=== PATIENT | female | born 1930 | race Caucasian/White ===

== ENCOUNTER 2021-02-11 18:45 | Inpatient (IN) | payer MEDICARE, OTHER ==
[2021-02-11] MEDS ORDERED: traMADol 50 MG Tab PO PRN (19:59)
--- NOTE | 2021-02-11 20:06 | EDM.PDOC ---
ED HPI GENERAL MEDICAL PROBLEM - General Chief Complaint: Lower Extremity Injury/Pain Stated Complaint: Left Hip Pain-fall Time Seen by Provider: 02/11/21 18:55 Source of Information: Reports: EMS - History of Present Illness INITIAL COMMENTS - FREE TEXT/NARRATIVE: Pt comes in by EMS with C/O falling at her sons home and now she cannot walk. She has left hip / pelvic pain with movement. At rest she has no pain. Initially she denies any other injuries. No H/A, neck pain, Abd pain, nausea. 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 Musculoskeletal: Reports: Other (left hip pain.) ED EXAM, GENERAL - Physical Exam Exam: See Below General Appearance: Other (she denies any pain at rest.) Extremities: Other (her area of pain is the posterior hip / pelvic area. She can raise her left leg with minimal pain.) Course - Vital Signs Last Recorded V/S: Last Vital Signs Temp 97.8 F 02/11/21 18:48 Pulse 75 02/11/21 18:48 Resp 18 02/11/21 18:48 BP 120/58 L 02/11/21 18:48 Pulse Ox 89 L 02/11/21 18:48 - Orders/Labs/Meds Orders: Active Orders 24 hr Category Date Time Status Patient Status [ADT] Routine ADT 02/11/21 19:53 Active Bedrest Bedside Commode [RC] ASDIRECTED Care 02/11/21 19:53 Active Oxygen Therapy [RC] PRN Care 02/11/21 19:53 Active VTE/DVT Education [RC] Per Unit Routine Care 02/11/21 19:53 Active Vital Signs [RC] Q4H Care 02/11/21 19:53 Active PT Evaluation and Treatment [CONS] Routine Cons 02/11/21 19:53 Active Regular Diet [DIET] Diet 02/12/21 Breakfast Ordered Chest wo Cont [CT] Stat Exams 02/11/21 19:22 Taken Hip Min 2V or 3V w Pelvis Lt [CR] Stat Exams 02/11/21 18:49 Taken BASIC METABOLIC PANEL,BMP [CHEM] AM Lab 02/12/21 05:11 Ordered CBC WITH AUTO DIFF [HEME] AM Lab 02/12/21 05:11 Ordered CORONAVIRUS COVID-19 RAPID [MOLEC] Urgent Lab 02/11/21 19:59 Ordered Acetaminophen [TylenoL] Med 02/11/21 19:53 Active 650 mg PO Q4H PRN traMADol [Ultram] Med 02/11/21 19:59 Ordered 50 mg PO Q6H PRN Resuscitation Status Routine Resus Stat 02/11/21 19:53 Ordered Medication Orders Acetaminophen (Acetaminophen 325 Mg Tab) 650 mg PO Q4H PRN PRN Reason: Pain (Mild 1-3)/fever Tramadol HCl (Tramadol 50 Mg Tab) 50 mg PO Q6H PRN PRN Reason: Pain (moderate 4-6) Meds: Medications Generic Name Dose Route Start Last Admin Trade Name Freq PRN Reason Stop Dose Admin Acetaminophen 650 mg 02/11/21 19:53 Acetaminophen 325 Mg Tab PO Q4H PRN Pain (Mild 1-3)/fever Tramadol HCl 50 mg 02/11/21 19:59 Tramadol 50 Mg Tab PO Q6H PRN Pain (moderate 4-6) - Re-Assessments/Exams Free Text/Narrative Re-Assessment/Exam: 02/11/21 20:02 Hip / pelvic x-rays show a pelvic fracture of the Ramus, inferior and superior. She now has some lower chest wall pain on the left side, with pain over the lower ribs with light palpation. A chest CT will be done. I did consult Ortho, Dr Merchant, who states the nature of tx is pain control and rehab. This is not surgical. I relayed this to the pt and her son. She will be admitted as an inpt here for pain control and monitoring. Departure - Departure Time of Disposition: 20:00 Disposition: Admitted As Inpatient 67 Condition: Good Clinical Impression: Fracture of pelvis - Discharge Information *PRESCRIPTION DRUG MONITORING PROGRAM REVIEWED*: No *COPY OF PRESCRIPTION DRUG MONITORING REPORT IN PATIENT RATNA: No Sepsis Event Note (ED) - Evaluation Sepsis Screening Result: No Definite Risk - Focused Exam Vital Signs: Vital Signs Temp Pulse Resp BP Pulse Ox 02/11/21 18:48 97.8 F 75 18 120/58 L 89 L - My Orders Last 24 Hours: My Active Orders 02/11/21 18:49 Hip Min 2V or 3V w Pelvis Lt [CR] Stat 02/11/21 19:22 Chest wo Cont [CT] Stat 02/11/21 19:53 Patient Status [ADT] Routine Bedrest Bedside Commode [RC] ASDIRECTED Oxygen Therapy [RC] PRN VTE/DVT Education [RC] Per Unit Routine Vital Signs [RC] Q4H PT Evaluation and Treatment [CONS] Routine Acetaminophen [TylenoL] 650 mg PO Q4H PRN Resuscitation Status Routine 02/11/21 19:59 CORONAVIRUS COVID-19 RAPID [MOLEC] Urgent traMADol [Ultram] 50 mg PO Q6H PRN 02/12/21 05:11 BASIC METABOLIC PANEL,BMP [CHEM] AM CBC WITH AUTO DIFF [HEME] AM 02/12/21 Breakfast Regular Diet [DIET] - Assessment/Plan Last 24 Hours: My Active Orders 02/11/21 18:49 Hip Min 2V or 3V w Pelvis Lt [CR] Stat 02/11/21 19:22 Chest wo Cont [CT] Stat 02/11/21 19:53 Patient Status [ADT] Routine Bedrest Bedside Commode [RC] ASDIRECTED Oxygen Therapy [RC] PRN VTE/DVT Education [RC] Per Unit Routine Vital Signs [RC] Q4H PT Evaluation and Treatment [CONS] Routine Acetaminophen [TylenoL] 650 mg PO Q4H PRN Resuscitation Status Routine 02/11/21 19:59 CORONAVIRUS COVID-19 RAPID [MOLEC] Urgent traMADol [Ultram] 50 mg PO Q6H PRN 02/12/21 05:11 BASIC METABOLIC PANEL,BMP [CHEM] AM CBC WITH AUTO DIFF [HEME] AM 02/12/21 Breakfast Regular Diet [DIET]
--- NOTE | 2021-02-11 20:56 | ADMIT ---
HISTORY OF PRESENT ILLNESS: This 89-year-old lady comes in by ambulance after falling at her son's home. She just traveled up here from the [facility] area where she lives. Her son tells me that he helped her up a couple of steps and he let go of her to turn around and do something and she tripped on a rug and fell. She was able to stand and bear weight, but she could not walk and therefore they called the ambulance. The patient denies any pain, unless she is moving around or trying to walk. She is admitted through the ER for pain control and close monitoring. I did consult with Ortho from [facility], Dr. Garcia, who assured me this is not a surgical patient, pain control and rehab are the main stays of treatment. The patient will be given Tylenol regularly and Ultram p.r.n. to get through the night and we will see how this goes for her. At rest, she is not having any pain at all. We did do a CT of the chest with results pending due to some discomfort of the left anterior lower chest wall that developed while we were evaluating her for the pelvic injury. The vital signs initially with a temp 97.8, pulse 75, blood pressure 120/58, respirations 18, O2 saturation 89% on room air, the patient is a long-time smoker, but otherwise has been in remarkably good health. CRS/MODL /[id number]
[2021-02-11] MEDS: Acetaminophen 325 MG Tab PO PRN (22:17)
[2021-02-12] MEDS: Acetaminophen/HYDROcodone 325-5 MG Tab PO PRN ×3 (00:33→14:28)
[2021-02-12] MEDS ORDERED: Docusate Sodium 100 MG Cap PO PRN (08:43)
[2021-02-12] MEDS ORDERED: Albuterol/Ipratropium 3.0-0.5 MG/3 ML Neb Soln ONE (08:47)
[2021-02-12] MEDS: Albuterol/Ipratropium 3.0-0.5 MG/3 ML Neb Soln NEB PRN ×2 (08:52→18:20)
--- NOTE | 2021-02-12 09:09 | PCM.PN ---
- General Info Date of Service: 02/12/21 Admission Dx/Problem (Free Text): Pelvic fracture Subjective Update: Patient is resting comfortably in her bed, complaining of left rib pain, and inability to get a deep cough to clear her airway. Patient is pain-free without movement. Functional Status: Reports: Pain Controlled - Review of Systems General: Reports: Appetite (Decreased) HEENT: Reports: No Symptoms Pulmonary: Reports: Cough, Other (Rib pain) Cardiovascular: Reports: No Symptoms Gastrointestinal: Reports: No Symptoms Genitourinary: Reports: No Symptoms Musculoskeletal: Reports: Joint Pain (Left hip pain on weightbearing) Skin: Reports: No Symptoms Neurological: Reports: No Symptoms Psychiatric: Reports: No Symptoms - Patient Data Vitals - Most Recent: Last Vital Signs Temp 97.3 F 02/12/21 08:17 Pulse 82 02/12/21 08:17 Resp 16 02/12/21 08:17 BP 151/71 H 02/12/21 08:17 Pulse Ox 99 02/12/21 08:17 Weight - Most Recent: 101 lb Lab Results Last 24 Hours: Laboratory Results - last 24 hr 02/12/21 Range/Units Unknown SARS-CoV-2 RNA (GIL) Negative (NEGATIVE) Med Orders - Current: Current Medications Acetaminophen (Acetaminophen 325 Mg Tab) 650 mg PO Q4H PRN PRN Reason: Pain (Mild 1-3)/fever Last Admin: 02/11/21 22:17 Dose: 650 mg Documented by: Hydrocodone Bitart/Acetaminophen (Acetaminophen/Hydrocodone 325-5 Mg Tab) 1 tab PO Q6H PRN PRN Reason: Pain (severe 7-10) Last Admin: 02/12/21 08:30 Dose: 1 tab Documented by: Albuterol/Ipratropium (Albuterol/Ipratropium 3.0-0.5 Mg/3 Ml Neb Soln) 3 ml NEB Q4H PRN PRN Reason: short of breath Last Admin: 02/12/21 08:52 Dose: 3 ml Documented by: Docusate Sodium (Docusate Sodium 100 Mg Cap) 100 mg PO DAILY PRN PRN Reason: Constipation Tramadol HCl (Tramadol 50 Mg Tab) 50 mg PO Q6H PRN PRN Reason: Pain (moderate 4-6) Last Admin: 02/11/21 20:33 Dose: 50 mg Documented by: Discontinued Medications Albuterol/Ipratropium (Albuterol/Ipratropium 3.0-0.5 Mg/3 Ml Neb Soln) Confirm Administered Dose 3 ml .ROUTE .STK-MED ONE Stop: 02/12/21 08:48 - Exam Quality Assessment: Supplemental Oxygen (Nasal cannula), DVT Prophylaxis (AUDREY hose) General: Alert, Oriented HEENT: Pupils Equal, Pupils Reactive, EOMI, Mucous Membr. Moist/[place] Neck: Supple, Trachea Midline, JVD Lungs: Decreased Breath Sounds, Rhonchi, Wheezing Cardiovascular: Regular Rate, Regular Rhythm GI/Abdominal Exam: Soft, Non-Tender, No Distention, No Mass Back Exam: No: CVA Tenderness (R), CVA Tenderness (L) Extremities: Normal Inspection, Non-Tender, No Pedal Edema Skin: Warm, Dry, Intact Wound/Incisions: Healing Well Neurological: No New Focal Deficit Psy/Mental Status: Alert, Normal Affect, Normal Mood - Patient Data Lab Results Last 24 hrs: Laboratory Results - last 24 hr 02/12/21 Range/Units Unknown SARS-CoV-2 RNA (GIL) Negative (NEGATIVE) Sepsis Event Note - Evaluation Sepsis Screening Result: Possible Sepsis Risk - Focused Exam Vital Signs: Vital Signs Temp Pulse Resp BP BP Pulse Ox Pulse Ox 02/12/21 08:17 97.3 F 82 16 151/71 H 99 02/12/21 01:00 18 02/11/21 21:26 97.6 F 70 18 133/90 90 L 90 L 02/11/21 21:23 97.6 F 70 18 133/69 89 L - Problem List & Annotations (1) Rib fractures SNOMED Code(s): 1520878 Code(s): S22.49XA - MULTIPLE FRACTURES OF RIBS, UNSP SIDE, INIT FOR CLOS FX Status: Acute Current Visit: Yes (2) Fracture of pelvis SNOMED Code(s): 32768618 Code(s): S32.9XXA - FRACTURE OF UNSP PARTS OF LUMBOSACRAL SPINE AND PELVIS, INIT Status: Acute Current Visit: Yes - Problem List Review Problem List Initiated/Reviewed/Updated: Yes - My Orders Last 24 Hours: My Active Orders 02/12/21 08:41 Albuterol/Ipratropium [DuoNeb 3.0-0.5 MG/3 ML] 3 ml NEB Q4H PRN 02/12/21 08:42 RT Aerosol Therapy [RC] ASDIRECTED 02/12/21 08:43 Docusate Sodium [Colace] 100 mg PO DAILY PRN - Assessment Assessment:: 1. Pelvic fracture 2. Rib fractures 3. Shortness of breath 4. Pain control - Plan Plan:: 1. Pelvic fracture PT eval for strength maintenance, and length of stay estimation 2. Rib fractures 3. Shortness of breath 4. Pain control. Treat patient's asthma while in hospital, with DuoNeb treatments every 4 hours as needed for shortness of breath, decrease coughing. Address patient's pain with narcotic agonist to allow her to take a deep breath. Patient has agreed to respiratory spirometry x4 daily to prevent pneumonia. Colace if pt develops narc constipation
[2021-02-12] MEDS: Acetaminophen 325 MG Tab PO PRN (14:30)
--- NOTE | 2021-02-12 15:36 | CT ---
DATE OF SERVICE: 02/11/2021 CLINICAL DATA: Fall with left lower chest wall pain. UNENHANCED CHEST CT: Multislice acquisition without IV contrast was performed. No priors. There are emphysematous changes throughout both lungs. There is atelectatic change in the dependent portion of both lungs and in both lung bases. There is a linear density in the lingular segment of the left upper lobe consistent with linear atelectasis or fibrosis. The lungs are otherwise clear. No areas of consolidation. No pneumothorax. No pleural effusions. The heart size is normal. No significant pericardial effusion. There are calcifications in the region of the mitral and aortic valves. There are coronary artery calcifications. There are calcified mediastinal and hilar nodes consistent with prior granulomatous disease. No enlarged lymph nodes. There is a moderate sized hiatal hernia. There is degenerative disc disease throughout the thoracic spine. There are partial compression fractures of the T12 and L1 vertebrae, age indeterminate. There is a healed rib fracture posteriorly on the left. There are mildly displaced fractures of the left 6th and 7th anterior ribs. No other significant findings. [id number] [facility]
--- NOTE | 2021-02-12 15:55 | CR ---
CLINICAL DATA: Fall with hip pain. PELVIS AND LEFT HIP: No priors. There is diffuse osteopenia. There are mild osteoarthritic changes of both hip joints. There is degenerative disk disease in the lower lumbar spine. There are degenerative changes involving the SI joints and symphysis pubis. No acute fracture or dislocation. No focal lytic or blastic bone lesions. There are vascular calcifications in the pelvis and proximal thighs. Job: [id number] [facility]
[2021-02-13] MEDS: Acetaminophen/HYDROcodone 325-5 MG Tab PO PRN ×2 (04:42→10:38)
[2021-02-13] MEDS: Montelukast 10 MG Tab PO SCH (07:47)
[2021-02-13] MEDS: amLODIPine 5 MG Tab PO SCH (07:47)
[2021-02-13] MEDS: Docusate Sodium 100 MG Cap PO SCH (12:31)
--- NOTE | 2021-02-13 12:37 | PCM.PN ---
- General Info Date of Service: 02/13/21 Admission Dx/Problem (Free Text): Pelvic fracture Subjective Update: Patient stated she slept well last night with pain control that was interrupted for short period of time when her ribs were causing her too much pain to sleep. Patient states that her morning breakfast caused her nausea and vomiting. Patient still awaiting evaluation by physical therapy Functional Status: Reports: Pain Controlled, Tolerating Diet (Despite nausea and vomiting), Ambulating (Awaiting evaluation by physical therapy) - Review of Systems General: Reports: No Symptoms HEENT: Reports: No Symptoms Pulmonary: Reports: Cough, Wheezing (Chronic) Cardiovascular: Reports: No Symptoms. Denies: Chest Pain Gastrointestinal: Reports: Constipation (Secondary to narcotics), Hematochezia (Secondary to hemorrhoids), Nausea, Vomiting. Denies: Abdominal Pain Genitourinary: Reports: No Symptoms Musculoskeletal: Reports: Other (Rib pain secondary to fall and fractured ribs, hip/pelvic pain secondary to fall/fracture) Skin: Reports: No Symptoms Neurological: Reports: No Symptoms Psychiatric: Reports: No Symptoms - Patient Data Vitals - Most Recent: Last Vital Signs Temp 97.4 F 02/13/21 09:00 Pulse 83 02/13/21 09:00 Resp 16 02/13/21 09:00 BP 136/64 02/13/21 09:00 Pulse Ox 94 L 02/13/21 09:00 Weight - Most Recent: 101 lb Alvin Results Last 24 Hours: Microbiology 02/11/21 20:30 MRSA Surveillance Culture - Final Nares, Left NO MRSA ISOLATED Med Orders - Current: Current Medications Acetaminophen (Acetaminophen 325 Mg Tab) 650 mg PO Q4H PRN PRN Reason: Pain (Mild 1-3)/fever Last Admin: 02/12/21 14:30 Dose: 650 mg Documented by: Hydrocodone Bitart/Acetaminophen (Acetaminophen/Hydrocodone 325-5 Mg Tab) 1 tab PO Q6H PRN PRN Reason: Pain (severe 7-10) Last Admin: 02/13/21 10:38 Dose: 1 tab Documented by: Albuterol/Ipratropium (Albuterol/Ipratropium 3.0-0.5 Mg/3 Ml Neb Soln) 3 ml NEB Q4H PRN PRN Reason: short of breath Last Admin: 02/12/21 18:20 Dose: 3 ml Documented by: Amlodipine Besylate (Amlodipine 5 Mg Tab) 5 mg PO DAILY [facility] Last Admin: 02/13/21 07:47 Dose: 5 mg Documented by: Docusate Sodium (Docusate Sodium 100 Mg Cap) 100 mg PO DAILY [facility] Montelukast Sodium (Montelukast 10 Mg Tab) 10 mg PO DAILY [facility] Last Admin: 02/13/21 07:47 Dose: 10 mg Documented by: Tramadol HCl (Tramadol 50 Mg Tab) 50 mg PO Q6H PRN PRN Reason: Pain (moderate 4-6) Last Admin: 02/11/21 20:33 Dose: 50 mg Documented by: Discontinued Medications Albuterol/Ipratropium (Albuterol/Ipratropium 3.0-0.5 Mg/3 Ml Neb Soln) Confirm Administered Dose 3 ml .ROUTE .STK-MED ONE Stop: 02/12/21 08:48 Last Admin: 02/12/21 10:11 Dose: Not Given Documented by: Docusate Sodium (Docusate Sodium 100 Mg Cap) 100 mg PO DAILY PRN PRN Reason: Constipation - Exam Quality Assessment: Supplemental Oxygen (Minified), DVT Prophylaxis (AUDREY hose) General: Alert, Oriented HEENT: Pupils Equal, Pupils Reactive, EOMI, Mucous Membr. Moist/[place] Lungs: Decreased Breath Sounds, Wheezing (Patient states she is at baseline) Cardiovascular: Regular Rate, Regular Rhythm GI/Abdominal Exam: Normal Bowel Sounds, Soft, Non-Tender, No Distention, No Mass Back Exam: Normal Inspection. No: CVA Tenderness (R), CVA Tenderness (L) Extremities: Normal Inspection, Non-Tender, No Pedal Edema, Normal Capillary Refill Skin: Warm, Dry, Intact Neurological: No New Focal Deficit Psy/Mental Status: Alert, Normal Affect, Normal Mood - Patient Data Result Diagrams: 02/12/21 09:18 02/12/21 09:18 Alvin Results Last 24 hrs: Microbiology 02/11/21 20:30 MRSA Surveillance Culture - Final Nares, Left NO MRSA ISOLATED Sepsis Event Note - Evaluation Sepsis Screening Result: No Definite Risk - Focused Exam Vital Signs: Vital Signs Temp Pulse Resp BP BP Pulse Ox 02/13/21 09:00 97.4 F 83 16 136/64 94 L 02/13/21 07:47 136/64 02/13/21 04:43 98.5 F 95 16 166/72 H 92 L - Problem List & Annotations (1) Rib fractures SNOMED Code(s): 5110279 Code(s): S22.49XA - MULTIPLE FRACTURES OF RIBS, UNSP SIDE, INIT FOR CLOS FX Status: Acute Current Visit: Yes (2) Fracture of pelvis SNOMED Code(s): 76081458 Code(s): S32.9XXA - FRACTURE OF UNSP PARTS OF LUMBOSACRAL SPINE AND PELVIS, INIT Status: Acute Current Visit: Yes - Problem List Review Problem List Initiated/Reviewed/Updated: Yes - My Orders Last 24 Hours: My Active Orders 02/13/21 08:00 Montelukast [Singulair] 10 mg PO DAILY amLODIPine [Norvasc] 5 mg PO DAILY 02/13/21 11:30 Docusate Sodium [Colace] 100 mg PO DAILY - Assessment Assessment:: 1. Pelvic fracture 2. Rib fractures 3. Shortness of breath 4. Pain control - Plan Plan:: 1. Pelvic fracture PT eval for strength maintenance, and length of stay estimation 2. Rib fractures 3. Shortness of breath 4. Pain control. Treat patient's asthma while in hospital, with DuoNeb treatments every 4 hours as needed for shortness of breath, decrease coughing. Address patient's pain with narcotic agonist to allow her to take a deep breath. Patient has agreed to respiratory spirometry x4 daily to prevent pneumonia. Colace daily for constipation secondary to narcotic use
[2021-02-13] MEDS ORDERED: Ondansetron 4 MG Tab.DIS PO PRN (15:03)
[2021-02-13] MEDS ORDERED: Calcium Carbonate 500 MG Tab.Chew PO PRN (19:29)
[2021-02-13] MEDS: Ondansetron 4 MG Tab.DIS PO PRN (19:35)
[2021-02-13] MEDS ORDERED: Sodium Chloride 0.9% 10 ML Syringe FLUSH PRN (21:05)
[2021-02-13] MEDS ORDERED: Morphine 2 MG/ML SYRINGE IVPUSH PRN (21:06)
[2021-02-14] MEDS: Docusate Sodium 100 MG Cap PO SCH (07:44)
[2021-02-14] MEDS: Montelukast 10 MG Tab PO SCH (07:44)
[2021-02-14] MEDS: amLODIPine 5 MG Tab PO SCH (08:26)
--- NOTE | 2021-02-14 10:16 | PCM.PN ---
- General Info Date of Service: 02/14/21 Admission Dx/Problem (Free Text): Pelvic fracture Subjective Update: Patient is still experiencing discomfort secondary to her fall rib pain being the most uncomfortable. Patient is not experiencing pain as long she is not moving. Patient did not tolerate oral narcotics well patient had severe nausea and vomiting. Patient was transitioned to an IV for morphine pushes but patient struggled with the IV being in place and refused any pain medication even though limited her breathing. After discussing with patient today we are going to try transitioning to a fentanyl patch to address her pain prior to trying to swing her. Functional Status: Denies: Pain Controlled (Pain is not controlled at this time), Tolerating Diet (Nausea vomiting most likely secondary to narcotic) - Review of Systems General: Reports: No Symptoms HEENT: Reports: No Symptoms Pulmonary: Reports: Shortness of Breath (Chronic baseline), Cough (Chronic), Wheezing (Chronic baseline), Other (Fractured ribs limiting inspiration) Cardiovascular: Reports: No Symptoms Gastrointestinal: Reports: Constipation Genitourinary: Reports: No Symptoms Musculoskeletal: Reports: Other (Left shoulder soreness, left hip discomfort on movement) Skin: Reports: Bruising (Left upper shoulder) Neurological: Reports: No Symptoms Psychiatric: Reports: No Symptoms - Patient Data Vitals - Most Recent: Last Vital Signs Temp 98.2 F 02/14/21 08:21 Pulse 101 H 02/14/21 08:21 Resp 16 02/14/21 08:21 BP 125/62 02/14/21 08:26 Pulse Ox 94 L 02/14/21 08:21 Weight - Most Recent: 101 lb Alvin Results Last 24 Hours: Microbiology 02/11/21 20:30 MRSA Surveillance Culture - Final Nares, Left NO MRSA ISOLATED Med Orders - Current: Current Medications Acetaminophen (Acetaminophen 325 Mg Tab) 650 mg PO Q4H PRN PRN Reason: Pain (Mild 1-3)/fever Last Admin: 02/12/21 14:30 Dose: 650 mg Documented by: Albuterol/Ipratropium (Albuterol/Ipratropium 3.0-0.5 Mg/3 Ml Neb Soln) 3 ml NEB Q4H ROSALIE Amlodipine Besylate (Amlodipine 5 Mg Tab) 5 mg PO DAILY ROSALIE Last Admin: 02/14/21 08:26 Dose: 5 mg Documented by: Calcium Carbonate/Glycine (Calcium Carbonate 500 Mg Tab.Chew) 500 mg PO Q2HR PRN PRN Reason: Indigestion Last Admin: 02/13/21 19:35 Dose: 500 mg Documented by: Docusate Sodium (Docusate Sodium 100 Mg Cap) 100 mg PO DAILY [facility] Last Admin: 02/14/21 07:44 Dose: 100 mg Documented by: Fentanyl (Fentanyl 12 Mcg/Hr Transdermal Patch) 12 mcg TRDERM Q72H [facility] Montelukast Sodium (Montelukast 10 Mg Tab) 10 mg PO DAILY [facility] Last Admin: 02/14/21 07:44 Dose: 10 mg Documented by: Ondansetron HCl (Ondansetron 4 Mg Tab.Dis) 4 mg PO Q4H PRN PRN Reason: Nausea/Vomiting Last Admin: 02/13/21 19:35 Dose: 4 mg Documented by: Sodium Chloride (Sodium Chloride 0.9% 10 Ml Syringe) 10 ml FLUSH ASDIRECTED PRN PRN Reason: Keep Vein Open Discontinued Medications Hydrocodone Bitart/Acetaminophen (Acetaminophen/Hydrocodone 325-5 Mg Tab) 1 tab PO Q6H PRN PRN Reason: Pain (severe 7-10) Last Admin: 02/13/21 10:38 Dose: 1 tab Documented by: Albuterol/Ipratropium (Albuterol/Ipratropium 3.0-0.5 Mg/3 Ml Neb Soln) 3 ml NEB Q4H PRN PRN Reason: short of breath Last Admin: 02/12/21 18:20 Dose: 3 ml Documented by: Albuterol/Ipratropium (Albuterol/Ipratropium 3.0-0.5 Mg/3 Ml Neb Soln) Confirm Administered Dose 3 ml .ROUTE .STK-MED ONE Stop: 02/12/21 08:48 Last Admin: 02/12/21 10:11 Dose: Not Given Documented by: Docusate Sodium (Docusate Sodium 100 Mg Cap) 100 mg PO DAILY PRN PRN Reason: Constipation Morphine Sulfate (Morphine 2 Mg/Ml Syringe) 1 mg IVPUSH Q4H PRN PRN Reason: Pain (moderate 4-6) Ondansetron HCl (Ondansetron 4 Mg Tab.Dis) 4 mg PO Q6H PRN PRN Reason: Nausea/Vomiting Last Admin: 02/13/21 15:09 Dose: 4 mg Documented by: Tramadol HCl (Tramadol 50 Mg Tab) 50 mg PO Q6H PRN PRN Reason: Pain (moderate 4-6) Last Admin: 02/11/21 20:33 Dose: 50 mg Documented by: - Exam Quality Assessment: Supplemental Oxygen (Nasal cannula 2 L), DVT Prophylaxis (AUDREY hose) General: Alert, Oriented HEENT: Pupils Equal, Pupils Reactive, EOMI, Mucous Membr. Moist/[place] Neck: Supple Lungs: Decreased Breath Sounds, Wheezing Cardiovascular: Regular Rate, Regular Rhythm, No Murmurs GI/Abdominal Exam: Soft, Non-Tender, No Distention (Female) Exam: Deferred Back Exam: Normal Inspection, Other (Palm-sized ecchymotic area superior to the left scapula secondary to fall) Extremities: Normal Inspection, Non-Tender, No Pedal Edema, Normal Capillary Re fill Skin: Warm, Dry, Intact Neurological: No New Focal Deficit Psy/Mental Status: Alert, Normal Affect, Normal Mood - Patient Data Result Diagrams: 02/12/21 09:18 02/12/21 09:18 Alvin Results Last 24 hrs: Microbiology 02/11/21 20:30 MRSA Surveillance Culture - Final Nares, Left NO MRSA ISOLATED Sepsis Event Note - Evaluation Sepsis Screening Result: No Definite Risk - Focused Exam Vital Signs: Vital Signs Temp Pulse Resp BP BP Pulse Ox 02/14/21 08:26 125/62 02/14/21 08:21 98.2 F 101 H 16 125/62 94 L - Problem List & Annotations (1) Rib fractures SNOMED Code(s): 8334960 Code(s): S22.49XA - MULTIPLE FRACTURES OF RIBS, UNSP SIDE, INIT FOR CLOS FX Status: Acute Current Visit: Yes (2) Fracture of pelvis SNOMED Code(s): 49588733 Code(s): S32.9XXA - FRACTURE OF UNSP PARTS OF LUMBOSACRAL SPINE AND PELVIS, INIT Status: Acute Current Visit: Yes (3) Constipation due to opioid therapy SNOMED Code(s): 287458427714356 Code(s): K59.03 - DRUG INDUCED CONSTIPATION; T40.2X5A - ADVERSE EFFECT OF OTHER OPIOIDS, INITIAL ENCOUNTER Status: Acute Current Visit: Yes - Problem List Review Problem List Initiated/Reviewed/Updated: Yes - My Orders Last 24 Hours: My Active Orders 02/13/21 11:30 Docusate Sodium [Colace] 100 mg PO DAILY 02/13/21 19:29 Calcium Carbonate [Tums] 500 mg PO Q2HR PRN Ondansetron [Zofran ODT] 4 mg PO Q4H PRN 02/13/21 21:05 Sodium Chloride 0.9% [Saline Flush] 10 ml FLUSH ASDIRECTED PRN 02/14/21 10:15 Albuterol/Ipratropium [DuoNeb 3.0-0.5 MG/3 ML] 3 ml NEB Q4H fentaNYL [Duragesic] 12 mcg TRDERM Q72H - Assessment Assessment:: 1. Pelvic fracture 2. Rib fractures 3. Shortness of breath 4. Pain control - Plan Plan:: 1. Pelvic [id number] mcg transdermal patch PT eval: Recommended a 1 to 2-week course of strengthening with them, recommendation to swing patient when patient pain is controlled 2. Rib [id number] mcg transdermal patch 3. Shortness of breathTreat patient's asthma while in hospital, with DuoNeb treatments every 4 hours for shortness of breath, decrease coughing.Patient has agreed to respiratory spirometry x4 daily to prevent pneumonia. 4. Pain control: 12 mcg transdermal patch 5. Constipation-Colace BID for constipation secondary to narcotic use, MiraLAX once
[2021-02-14] MEDS ORDERED: Polyethylene Glycol 3350 Powder 17 GM Packet PO ONE (10:17)
[2021-02-14] MEDS ORDERED: Polyethylene Glycol 3350 Powder 17 GM Packet ONE (10:21)
[2021-02-14] MEDS ORDERED: fentaNYL 12 MCG/HR Transdermal Patch TRDERM SCH (10:30)
[2021-02-14] MEDS: Albuterol/Ipratropium 3.0-0.5 MG/3 ML Neb Soln NEB SCH ×3 (10:33→17:22)
[2021-02-14] MEDS: Ondansetron 4 MG Tab.DIS PO PRN ×2 (17:21→21:40)
[2021-02-14] MEDS ORDERED: Docusate Sodium 100 MG Cap ONE (19:52)
[2021-02-14] MEDS ORDERED: Docusate Sodium 100 MG Cap PO SCH (20:00)
[2021-02-14] MEDS ORDERED: Pantoprazole 8 MG in Sodium Chloride 0.9% 100 ML IV SCH (20:15)
[2021-02-14] MEDS ORDERED: Azithromycin 500 MG in Sodium Chloride 0.9% 250 ML IV SCH (20:30)
[2021-02-14] MEDS ORDERED: Pantoprazole 80 MG in Sodium Chloride 0.9% 100 ML IV SCH (20:30)
--- NOTE | 2021-02-14 22:59 | PCM.SN.2 ---
- Free Text/Narrative Note: This afternoon nursing staff pulled me aside to show me a large volume coffee ground emesis in patients toilet. At that point patient was sent for CT and had labs drawn CBC and CMP. Labs and CT confirm a upper GI bleed. Labs: White blood cell count 15.6 Red blood cells 3.07 Hemoglobin 9.7 down from 12.2 on 12 February hematocrit 30.7 Potassium 5.5 Chloride 97 Carbon dioxide 36.4 BUN 75 Creatinine 1.96 GFR 24 Stool Hemoccult positive, emesis Hemoccult positive CT showed stomach full of liquid though patient has not taken any oral intake. Upon confirming our suspicions, we reached out to [facility] with no vacancy. Subsequently reach out to [facility] who accepted the patient steel chipper accepted to room 360. Patient and POA/daughter were educated to transportation options, and risks associated with each, patient and POA concerned about cost associated with air ambulance, patient and POA both agreed to go by BLS transport and accept the risks associated with 3-hour transport. Patient was transported by [facility] ambulance [facility]. Plan was to initiate Protonix with the upper GI protocol of 8mg/h for the first 72 hours but that was not initiated prior to transport. Azithromycin 500 mg was initiated prior to patient leaving. Due to leukocytosis
--- NOTE | 2021-02-15 10:29 | CT ---
Date of Service: 02/14/21 Clinical Data Bloody emesis UNENHANCED CHEST CT: Multislice acquisition through the chest without IV contrast was performed. Comparison is made to a prior exam dated 02/11/21. There are densities in both lung bases posteriorly in the costophrenic angles with small areas of consolidation bilaterally. Pneumonia should be considered. The lungs are otherwise stable from the prior CT. There is a small left pleural effusion. It was not present on the prior study. There is a large hiatal hernia. The remainder of the exam is unchanged from the prior. Stable left rib fractures. UNENHANCED ABDOMEN AND PELVIC CT: Multislice acquisition through the abdomen and pelvis without IV or oral contrast was performed. No priors. The stomach is fluid and gas filled. It is moderately distended. Gastric outlet obstruction should be considered. There is a large hiatal hernia. The unenhanced liver appears normal. No focal hepatic lesions. The gallbladder is mildly distended. No calcified gallstones. No pericholecystic fluid. There is a calcification within the spleen consistent with prior granulomatous disease. The spleen otherwise appears normal. The pancreas appears normal. The right and left adrenals appear normal. There is atrophy of both kidneys. There are small cysts in both kidneys. No nephrocalcinosis or nephrolithiasis. No hydronephrosis or hydroureter. The bladder is partially fluid filled. There is diffuse bladder wall thickening. This is probably related to nondistention. Cystitis or an infiltrating process should be considered. There is a 2.0 cm rounded fluid density lesion in the region of the right ovary and adnexa. Cystic ovarian neoplasm should be considered. Pelvic ultrasound is recommended. No evidence of appendicitis. No free air. No free fluid. No dilated loops of bowel. No adenopathy. There is a bilobed abdominal aortic aneurysm. It measures 3 cm in maximum diameter. No adenopathy. No dilated loops of bowel. There is a small fat-containing umbilical hernia. There is a comminuted mildly displaced fracture through the superior pubic ramus on the left. There is degenerative disk disease throughout the lower thoracic and lumbar spine. There are partial compression fractures of the T12, L1, and L2 vertebrae, age indeterminate. No other significant findings. [id number] [facility]
== END 2021-02-14 21:49 | DRG 184 ==
LOC: LB.ED 18:45 → LB.MS 19:49 → UNDOADMIN 20:00 → LB.MS 20:00
PROVIDERS: ADMIT Physician Assistant; ATTEND Physician Assistant
DX: S22.42XA Multiple fractures of ribs, left side, initial encounter for closed fracture (principal); S32.592A Other specified fracture of left pubis, initial encounter for closed fracture; W01.0XXA Fall on same level from slipping, tripping and stumbling without subsequent striking against object, initial encounter; Y92.009 Unspecified place in unspecified non-institutional (private) residence as the place of occurrence of the external cause; K59.03 Drug induced constipation; T40.2X5A Adverse effect of other opioids, initial encounter; Y92.89 Other specified places as the place of occurrence of the external cause; R06.02 Shortness of breath; Z20.822 Contact with and (suspected) exposure to COVID-19; I10 Essential (primary) hypertension; J45.909 Unspecified asthma, uncomplicated
CPT/HCPCS: 36415; 71250; 73502-LT; 74176; 80048; 81001; 85025; 85610; 87086; 97161-GP; 99285-25; A0425; A0429; A9270-GY; J7620-GY; U0002